=== PATIENT | female | born 1955 | race Caucasian/White ===

== ENCOUNTER 2022-04-28 08:47 | Emergency (ER) | payer MEDICARE, MEDICAID ==
[~2022-04-28] VITALS: Ht 172.7 cm; Wt 72.7 kg
[2022-04-28 09:37] LABS: CLARITY,URINE CLOUDY (Clear); COLOR,URINE STRAW (Yellow); GLUCOSE, URINE NEGATIVE (Neg); KETONES,URINE NEGATIVE (Neg); LEUKOCYTE ESTERASE ,URINE MODERATE (Neg); NITRITES, URINE NEGATIVE (Neg); OCCULT BLOOD,URINE MODERATE (Neg); PROTEIN,URINE NEGATIVE (Neg); UROBILINOGEN,URINE 0.2 E.U/dL (0.2-1.0)
[2022-04-28 09:40] LABS: UA COLLECTION TYPE CLN CATCH MIDSTREAM
[2022-04-28 09:44] LABS: MUCUS STRANDS NONE SEEN /LPF (Neg); SQUAMOUS EPITHELIAL CELL,UR FEW /LPF (FEW); WBC CLUMPS,URINE MANY /HPF (NEGATIVE); WBC,URINE TNTC /HPF (0-4)
[2022-04-28 09:45] LABS: BACTERIA,URINE 2+ /HPF (Neg); RBC,URINE 20-50 /HPF (0-2)
[2022-04-28] MEDS ORDERED: NITR100C6 PO (09:49)
[2022-04-28] MEDS ORDERED: nitrofuran monohydrate/nitrofuran macrocrysal 100 MG (MacroBID) capsule PO ONE (09:50)
[2022-04-28 09:59] VITALS: BP 125/83
== END 2022-04-28 10:01 | disposition home or self-care (01) ==
LOC: ER 08:48
DX: N39.0 Urinary tract infection, site not specified (principal)
CPT/HCPCS: 81001; 87077; 87088; 87186; 99283

== ENCOUNTER 2024-02-25 13:47 | Outpatient (CLI) | payer MEDICARE, MEDICAID ==
[~2024-02-25 13:47] MED LIST: NITR100C6 PO
== END 2024-02-25 23:59 | disposition home or self-care (01) ==
LOC: MRI02 13:47
PROVIDERS: ATTEND Family Medicine Sports Medicine
DX: M51.17 Intervertebral disc disorders with radiculopathy, lumbosacral region (principal); M54.50 Low back pain, unspecified; M79.18 Myalgia, other site; M77.9 Enthesopathy, unspecified; M47.27 Other spondylosis with radiculopathy, lumbosacral region; M48.07 Spinal stenosis, lumbosacral region
CPT/HCPCS: 72148